=== PATIENT | female | born 1985 | race African-American/Black ===

== ENCOUNTER 2018-08-05 12:41 | Emergency (ER) | payer MEDICARE, MEDICAID ==
[2018-08-05 13:25] VITALS: BP 129/74
[2018-08-05 15:05] LABS: BILIRUBIN,URINE NEGATIVE (NEGATIVE); GLUCOSE, URINE (UA) NEGATIVE (NEGATIVE); KETONES,URINE (UA) TRACE mg/dL (NEGATIVE); LEUKOCYTE ESTERASE, URINE NEGATIVE (NEGATIVE); NITRITE,URINE NEGATIVE (NEGATIVE); OCCULT BLOOD,URINE NEGATIVE (NEGATIVE); PROTEIN,URINE TRACE mg/dL (NEGATIVE); UROBILINOGEN,URINE 0.2 (NORMAL) E.U./dL (NORMAL)
[2018-08-05 15:07] LABS: CLARITY,URINE CLOUDY (CLEAR); HCG UR QUAL NEGATIVE
[2018-08-05] MEDS ORDERED: IBUPROFEN 800 MG TABLET PO STA (15:16)
--- NOTE | 2018-08-05 15:19 | ED Physician Documentation ---
PD HPI URI - Stated complaint Stated Complaint: FEVER - Chief complaint Chief Complaint: Fever - History obtained from History obtained from: Patient - History of Present Illness Timing - onset: How many weeks ago (1) Timing duration: Weeks (1) Timing details: Gradual onset Pain level max: 5 Pain level now: 4 Associated symptoms: Fever, Chills, Sweats, Nasal congestion, Rhinorrhea, Sinus pain, Dry cough. No: Sore throat, Chest pain, Dyspnea Contributing factors: Travel (to [place] for 3 weeks). 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 : None HEENT: None Psych: Depression, Anxiety Musculoskeletal: None Derm: None - Past Surgical History Past Surgical History: Yes HEENT: Tonsil/Adenoidectomy - Present Medications Home Medications: Ambulatory Orders Medication Instructions Recorded Confirmed Benzonatate [Tessalon Perle] 100 - 200 mg PO TID PRN #30 capsule 08/05/18 - Allergies Allergies/Adverse Reactions: Allergies Allergy/AdvReac Type Severity Reaction Status Date / Time acetaminophen [From Vicodin] Allergy Intermediate Itching Verified 08/05/18 13:14 hydrocodone [From Vicodin] Allergy Intermediate Itching Verified 08/05/18 13:14 Penicillins Allergy Intermediate Itching Verified 08/05/18 13:14 - Social History Does the pt smoke?: No Smoking Status: Never smoker Does the pt drink ETOH?: No Does the pt have substance abuse?: No - Immunizations Immunizations are current?: Yes - POLST Patient has POLST: No PD ED PE NORMAL - Vitals Vital signs reviewed: Yes - General General: Alert and oriented X 3, No acute distress, Well developed/nourished - HEENT HEENT: Ears normal, Moist mucous membranes, Pharynx benign - Neck Neck: Supple, no meningeal sign - Cardiac Cardiac: RRR, Strong equal pulses - Respiratory Respiratory: No respiratory distress, Other (mild rhonchi RLL) - Abdomen Abdomen: Soft, Non tender, Non distended - Derm Derm: Warm and dry, No rash - Extremities Extremities: No edema, No calf tenderness / cord - Neuro Neuro: Alert and oriented X 3 Results - Vitals Vitals: Vital Signs - 24 hr 08/05/18 13:14 Temperature 38.4 C H Heart Rate 85 Respiratory 16 Rate Blood Pressure 129/74 O2 Saturation 96 Oxygen O2 Source Room air - Labs Labs: Laboratory Tests 08/05/18 08/05/18 14:46 14:46 Urine Color YELLOW Urine Clarity CLOUDY Urine pH 6.0 Ur Specific [place] >=1.030 H Urine Protein TRACE Urine Glucose (UA) NEGATIVE Urine Ketones TRACE Urine Occult Blood NEGATIVE Urine Nitrite NEGATIVE Urine Bilirubin NEGATIVE Urine Urobilinogen 0.2 (NORMAL) Ur Leukocyte Esterase NEGATIVE Urine RBC None Seen Urine WBC 0-3 Ur Squamous Epith Cells NONE SEEN Amorphous Sediment Marked Urine Bacteria None Seen Ur Microscopic Review INDICATED Urine Culture Comments NOT INDICATED Urine HCG, Qual NEGATIVE Influenza A (Rapid) Negative Influenza B (Rapid) Negative - Rads (name of study) cxr Radiology: Prelim report reviewed, EMP read contemporaneously, See rad report (No acute disease) PD MEDICAL DECISION MAKING - ED course Complexity details: reviewed results, re-evaluated patient, considered differential, d/w patient ED course: 33-year-old female presents to the emergency department with what appears to be a viral syndrome. She is well-appearing, nontoxic. Afebrile. We will continue supportive care and follow-up with her doctor. Patient counseled regarding signs and symptoms for which I believe and urgent re-evaluation would be necessary. Patient with good understanding of and agreement to plan and is comfortable going home at this time This document was made in part using voice recognition software. While efforts are made to proofread this document, sound alike and grammatical errors may occur. Departure - Departure Disposition: 01 Home, Self Care Clinical Impression: Viral syndrome Condition: Good Instructions: ED Viral Syndrome Follow-Up: your,doctor in 1 week [Other] Prescriptions: Benzonatate [Tessalon Perle] 100 - 200 mg PO TID PRN #30 capsule PRN Reason: Cough Comments: Go home and rest. Return if you worsen. Drink plenty of fluids. You can use Motrin or Tylenol as needed for pain. Discharge Date/Time: 08/05/18 16:30
[2018-08-05 15:41] LABS: AMORPHOUS SEDIMENT,UR Marked /LPF; BACTERIA,URINE None Seen /HPF (None Seen); RBC,URINE None Seen /HPF (0-5); SQUAMOUS EPITHELIAL CELL,UR NONE SEEN (<= Few)
--- NOTE | 2018-08-05 15:58 | XRAY Report ---
Reason: fever, cough Procedure Date: 08/05/2018 Accession Number: [id number] / [id number] Procedure: XR - Chest 2 View X-Ray CPT Code: 10990 FULL RESULT: EXAM: CHEST RADIOGRAPHY EXAM DATE: 08/05/2018 03:31 PM. CLINICAL HISTORY: Fever, cough. COMPARISON: None. TECHNIQUE: 2 views. FINDINGS: Lungs/Pleura: No focal opacities evident. No pleural effusion. No pneumothorax. Normal volumes. Mediastinum: Heart and mediastinal contours are unremarkable. Other: None. IMPRESSION: No acute cardiopulmonary abnormality. RADIA
== END 2018-08-05 16:30 | disposition home or self-care (01) ==
LOC: ED 12:41
DX: B34.9 Viral infection, unspecified (principal)
CPT/HCPCS: 71046; 81001; 81025; 87275; 87276; 99283; A9270; 81003; 87086

== ENCOUNTER 2018-10-14 20:01 | Emergency (ER) | payer MEDICARE, MEDICAID ==
[2018-10-14] MEDS ORDERED: IBUPROFEN 800 MG TABLET PO STA (20:20)
--- NOTE | 2018-10-14 20:22 | ED Physician Documentation ---
PD HPI ABD PAIN - Stated complaint Stated Complaint: L SIDE PAIN - Chief complaint Chief Complaint: Abd Pain - History obtained from History obtained from: Patient - History of Present Illness Timing - onset: Other (Her last menses finished up about a week ago. Subsequent to that she developed about 2 days later and now going on for 5 days left flank pain radiating to the left lower quadrant and down into the buttock. Its associated with decreased appetite but no nausea or vomiting. No change in her bowel movements. She is had vaginal bleeding as well. She had renal colic before but she says this is milder and different.) Review of Systems Ten Systems: 10 systems reviewed and negative Constitutional: denies: Fever, Chills Cardiac: denies: Chest pain / pressure, Palpitations Respiratory: denies: Dyspnea, Cough GI: reports: Abdominal Pain. denies: Nausea, Vomiting, Constipation, Hematemesis, Bloody / black stool : reports: Vaginal bleeding. 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 : None HEENT: None Psych: Depression, Anxiety Musculoskeletal: None Derm: None - Past Surgical History Past Surgical History: Yes HEENT: Tonsil/Adenoidectomy - Present Medications Home Medications: Ambulatory Orders Medication Instructions Recorded Confirmed Benzonatate [Tessalon Perle] 100 - 200 mg PO TID PRN #30 capsule 08/05/18 - Allergies Allergies/Adverse Reactions: Allergies Allergy/AdvReac Type Severity Reaction Status Date / Time acetaminophen [From Vicodin] Allergy Intermediate Itching Verified 10/14/18 20:08 hydrocodone [From Vicodin] Allergy Intermediate Itching Verified 10/14/18 20:08 Penicillins Allergy Intermediate Itching Verified 10/14/18 20:08 - Social History Does the pt smoke?: No Smoking Status: Never smoker Does the pt drink ETOH?: No Does the pt have substance abuse?: No - Immunizations Immunizations are current?: Yes - POLST Patient has POLST: No PD ED PE NORMAL - Vitals Vital signs reviewed: Yes - General General: Alert and oriented X 3, No acute distress - Cardiac Cardiac: RRR, No murmur - Respiratory Respiratory: No respiratory distress, Clear bilaterally - Abdomen Abdomen: Normal bowel sounds, Soft, Non tender - Back Back: No CVA TTP, No spinal TTP - Neuro Neuro: Alert and oriented X 3, Normal speech Results - Vitals Vitals: Vital Signs - 24 hr 10/14/18 10/14/18 10/14/18 20:03 20:12 21:12 Temperature 37.1 C Heart Rate 66 75 Respiratory 18 18 16 Rate Blood Pressure 158/115 H 122/96 H O2 Saturation 98 99 Oxygen O2 Source Room air - Labs Labs: Laboratory Tests 10/14/18 10/14/18 10/14/18 20:24 20:30 20:30 WBC 8.9 RBC 4.58 Hgb 13.6 Hct 38.7 MCV 84.5 MCH 29.7 MCHC 35.1 RDW 13.5 Plt Count 518 H MPV 7.0 L Neut # (Auto) 4.8 Lymph # (Auto) 3.3 [place] # (Auto) 0.6 Eos # (Auto) 0.1 Baso # (Auto) 0.1 Absolute Nucleated RBC 0.00 Nucleated RBC % 0.0 Sodium 140 Potassium 3.8 Chloride 108 Carbon Dioxide 23 Anion Gap 9.0 BUN 17 Creatinine 0.7 Estimated GFR (MDRD) 116 Glucose 107 H Calcium 10.0 Total Bilirubin 0.5 AST 20 ALT 27 Alkaline Phosphatase 64 Total Protein 8.7 H Albumin 4.9 Globulin 3.8 Albumin/Globulin Ratio 1.3 Lipase 27 Urine Color YELLOW Urine Clarity HAZY Urine pH 6.0 Ur Specific [place] 1.025 Urine Protein NEGATIVE Urine Glucose (UA) NEGATIVE Urine Ketones 15 H Urine Occult Blood MODERATE H Urine Nitrite NEGATIVE Urine Bilirubin NEGATIVE Urine Urobilinogen 0.2 (NORMAL) Ur Leukocyte Esterase NEGATIVE Urine RBC 6-10 H Urine WBC 0-3 Ur Squamous Epith Cells FEW Squamous Urine Bacteria Rare Ur Microscopic Review INDICATED Urine Culture Comments NOT INDICATED Urine HCG, Qual NEGATIVE - Rads (name of study) CT A/P Radiology: EMP read contemporaneously (Official read as thickening of the endometrial stripe, I also note a left ovarian cyst which was not commented on by the radiologist.) PD MEDICAL DECISION MAKING - ED course ED course: 33-year-old woman with left pelvic and flank pain, she has had renal colic befor e and feels like this is not reminiscent and it is associated with vaginal bleeding. She is not and her labs are reassuring. CT as shown with thickening of the endometrial stripe and to my eye a left ovarian cyst which the radiologist did not comment on. She did not need anything other than ibuprofen for pain. Discussed the need for a follow-up ultrasound. Departure - Departure Disposition: 01 Home, Self Care Clinical Impression: Ovarian cyst Qualifiers: Laterality: left Qualified Code(s): N83.202 - Unspecified ovarian cyst, left side Condition: Good Record reviewed to determine appropriate education?: Yes Instructions: Abdominal Pain Follow-Up: [facility] [Provider Group] Comments: You can take ibuprofen as needed for the pain. As discussed you will need a follow-up ultrasound, follow-up with the gynecology office for this, you can call on Wednesday to make an appointment for a few date weeks down the road. Return for new worsening symptoms.
[2018-10-14 20:34] LABS: BILIRUBIN,URINE NEGATIVE (NEGATIVE); GLUCOSE, URINE (UA) NEGATIVE (NEGATIVE); KETONES,URINE (UA) 15 mg/dL (NEGATIVE); LEUKOCYTE ESTERASE, URINE NEGATIVE (NEGATIVE); NITRITE,URINE NEGATIVE (NEGATIVE); OCCULT BLOOD,URINE MODERATE (NEGATIVE); PROTEIN,URINE NEGATIVE (NEGATIVE); UROBILINOGEN,URINE 0.2 (NORMAL) E.U./dL (NORMAL)
[2018-10-14 20:38] LABS: BASOPHILS # (AUTO) 0.1 10^3/uL (0.0-0.1); BASOPHILS % (AUTO) 0.7 %; EOSINOPHILS # (AUTO) 0.1 10^3/uL (0.0-0.7); EOSINOPHILS % (AUTO) 1.4 %; HGB - HEMOGLOBIN 13.6 g/dL (12.0-16.0); LYMPHOCYTES # (AUTO) 3.3 10^3/uL (1.5-3.5); LYMPHOCYTES % (AUTO) 37.6 %; MEAN CORPUSCULAR HEMOGLOBIN 29.7 pg (27.0-31.0); MEAN CORPUSCULAR HGB CONC 35.1 g/dL (32.0-36.0); MEAN CORPUSCULAR VOLUME 84.5 fL (81.0-99.0); MONOCYTES # (AUTO) 0.6 10^3/uL (0.0-1.0); MONOCYTES % (AUTO) 6.9 %; NEUTROPHILS # (AUTO) 4.8 10^3/uL (1.5-6.6); NEUTROPHILS % (AUTO) 53.4 %; PLT - PLATELET COUNT 518 10^3/uL (130-450); RED BLOOD COUNT 4.58 10^6/uL (4.20-5.40); RED CELL DISTRIBUTION WIDTH 13.5 % (12.0-15.0); WHITE BLOOD COUNT 8.9 x10^3/uL (4.8-10.8)
[2018-10-14 20:40] LABS: CLARITY,URINE HAZY (CLEAR); HCG UR QUAL NEGATIVE
[2018-10-14 20:51] LABS: ALBUMIN 4.9 g/dL (3.2-5.5); ALBUMIN/GLOBULIN RATIO 1.3 (1.0-2.2); BILIRUBIN,TOTAL 0.5 mg/dL (0.2-1.0); CREATININE 0.7 mg/dL (0.4-1.0); TOTAL PROTEIN 8.7 g/dL (6.7-8.2)
[2018-10-14 20:53] LABS: BACTERIA,URINE Rare /HPF (None Seen); SQUAMOUS EPITHELIAL CELL,UR FEW Squamous (<= Few)
[2018-10-14] MEDS ORDERED: IOVERSOL 320 100 ML VIAL IVP ONE ×2 (21:10→21:46)
--- NOTE | 2018-10-14 22:16 | CT Report ---
Reason: L flank pain Procedure Date: 10/14/2018 Accession Number: [id number] / [id number] Procedure: CT - Abdomen/Pelvis W CPT Code: FULL RESULT: EXAM: CT ABDOMEN AND PELVIS EXAM DATE: 10/14/2018 09:43 PM. CLINICAL HISTORY: Left lower flank pain for 4 days. COMPARISONS: None. TECHNIQUE: Routine helical CT imaging was performed through the abdomen and pelvis. IV contrast: 100 mL [id number]. Enteric contrast: No. Reconstructions: Coronal and sagittal. In accordance with CT protocol optimization, one or more of the following dose reduction techniques were utilized for this exam: automated exposure control, adjustment of mA and/or KV based on patient size, or use of iterative reconstructive technique. FINDINGS: ABDOMEN: Liver: No significant abnormality. Stomach/Distal Esophagus: No significant abnormality. Gallbladder: No significant abnormality. Bile Ducts: No significant abnormality. Pancreas: No significant abnormality. Spleen: No significant abnormality. Kidneys: No suspicious solid appearing lesion. No hydronephrosis. Adrenals: No significant abnormality. Bowel: No obstruction. Average fecal residual. Appendix: Normal. Lymph Nodes: No pathologically enlarged nodes. Vasculature: Normal caliber aorta. Fluid: No significant free fluid. Abdominal Wall: No significant abnormality. Other: No significant abnormality. PELVIS: Uterus and Ovaries: Nonspecific heterogenous appearance of the endometrial stripe complex. Normal appearance of the ovaries. Cervical nabothian cyst. Possible adenomyosis and/or leiomyoma at the uterine fundus. Bladder: No significant abnormality. Lymph Nodes: No pathologically enlarged nodes. Fluid: No significant free fluid. Other: None. BONES: No suspicious bony lesions. LOWER CHEST: No significant consolidation or effusion. IMPRESSION: 1. No acute abdominal or pelvic abnormality. 2. Nonspecific heterogeneous appearance of the endometrial stripe complex. This could be further assessed with a nonemergent outpatient pelvic ultrasound. RADIA
[2018-10-14 22:27] VITALS: BP 102/73
== END 2018-10-14 22:27 | disposition home or self-care (01) ==
LOC: ED 20:01
DX: N83.202 Unspecified ovarian cyst, left side (principal); N93.9 Abnormal uterine and vaginal bleeding, unspecified
CPT/HCPCS: 36415; 74177; 80053; 81001; 81025; 83690; 85025; 99283; A9270; Q9967; 81003; 87086

== ENCOUNTER 2018-10-17 19:09 | Emergency (ER) | payer MEDICARE, MEDICAID ==
--- NOTE | 2018-10-17 19:29 | ED Physician Documentation ---
PD HPI BACK PAIN - Stated complaint Stated Complaint: Female - Chief complaint Chief Complaint: Back Pain - History obtained from History obtained from: Patient - History of Present Illness Timing - onset: Other (Seen a few days ago for L pelvic pain, dx L ovarian cyst. 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 : None HEENT: None Psych: Depression, Anxiety Musculoskeletal: None Derm: None - Past Surgical History Past Surgical History: Yes HEENT: Tonsil/Adenoidectomy - Present Medications Home Medications: Ambulatory Orders Medication Instructions Recorded Confirmed Benzonatate [Tessalon Perle] 100 - 200 mg PO TID PRN #30 capsule 08/05/18 - Allergies Allergies/Adverse Reactions: Allergies Allergy/AdvReac Type Severity Reaction Status Date / Time acetaminophen [From Vicodin] Allergy Intermediate Itching Verified 10/17/18 19:15 hydrocodone [From Vicodin] Allergy Intermediate Itching Verified 10/17/18 19:15 Penicillins Allergy Intermediate Itching Verified 10/17/18 19:15 - Social History Does the pt smoke?: No Smoking Status: Never smoker Does the pt drink ETOH?: No Does the pt have substance abuse?: No - Immunizations Immunizations are current?: Yes - POLST Patient has POLST: No PD ED PE NORMAL - Vitals Vital signs reviewed: Yes - General General: Alert and oriented X 3, No acute distress - Cardiac Cardiac: RRR, No murmur - Respiratory Respiratory: No respiratory distress, Clear bilaterally - Abdomen Abdomen: Normal bowel sounds, Soft, Other (Mild TTP L pelvis and L CVAT) - 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), Other (No blood, No CMT or adnexal TTP or mass) - Back Back: No CVA TTP, No spinal TTP - Derm Derm: Normal color, Warm and dry - Extremities Extremities: No edema, No calf tenderness / cord - Neuro Neuro: Alert and oriented X 3, Normal speech Results - Vitals Vitals: Vital Signs - 24 hr 10/17/18 10/17/18 19:11 22:22 Temperature 36.9 C Heart Rate 72 82 Respiratory 14 16 Rate Blood Pressure 142/93 H 150/84 H O2 Saturation 100 97 Oxygen O2 Source Room air - Labs Labs: Laboratory Tests 10/17/18 10/17/18 10/17/18 19:15 19:15 19:47 WBC 10.7 RBC 4.35 Hgb 13.2 Hct 37.0 MCV 85.1 MCH 30.3 MCHC 35.6 RDW 13.8 Plt Count 495 H MPV 7.3 L Neut # (Auto) 7.0 H Lymph # (Auto) 2.9 [place] # (Auto) 0.7 Eos # (Auto) 0.1 Baso # (Auto) 0.1 Absolute Nucleated RBC 0.00 Nucleated RBC % 0.0 Sodium Potassium Chloride Carbon Dioxide Anion Gap BUN Creatinine Estimated GFR (MDRD) Glucose Calcium Total Bilirubin AST ALT Alkaline Phosphatase Total Protein Albumin Globulin Albumin/Globulin Ratio Lipase Urine Color YELLOW Cancelled Urine Clarity HAZY Cancelled Urine pH 5.5 Cancelled Ur Specific [place] >=1.030 H >=1.030 H Urine Protein NEGATIVE Cancelled Urine Glucose (UA) NEGATIVE Cancelled Urine Ketones NEGATIVE Cancelled Urine Occult Blood SMALL H Cancelled Urine Nitrite NEGATIVE Cancelled Urine Bilirubin NEGATIVE Cancelled Urine Ictotest Cancelled Urine Urobilinogen 0.2 (NORMAL) Cancelled Ur Leukocyte Esterase NEGATIVE Cancelled Urine RBC 0-5 Urine WBC 0-3 Ur Squamous Epith Cells FEW Squamous Urine Bacteria None Seen Ur Microscopic Review Cancelled Urine Culture Comments NOT INDICATED Cancelled Urine HCG, Qual NEGATIVE 10/17/18 19:47 WBC RBC Hgb Hct MCV MCH MCHC RDW Plt Count MPV Neut # (Auto) Lymph # (Auto) [place] # (Auto) Eos # (Auto) Baso # (Auto) Absolute Nucleated RBC Nucleated RBC % Sodium 137 Potassium 3.8 Chloride 105 Carbon Dioxide 22 Anion Gap 10.0 BUN 12 Creatinine 0.5 Estimated GFR (MDRD) 171 Glucose 118 H Calcium 10.1 Total Bilirubin 0.3 AST 25 ALT 28 Alkaline Phosphatase 67 Total Protein 7.8 Albumin 4.5 Globulin 3.3 Albumin/Globulin Ratio 1.4 Lipase 37 Urine Color Urine Clarity Urine pH Ur Specific [place] Urine Protein Urine Glucose (UA) Urine Ketones Urine Occult Blood Urine Nitrite Urine Bilirubin Urine Ictotest Urine Urobilinogen Ur Leukocyte Esterase Urine RBC Urine WBC Ur Squamous Epith Cells Urine Bacteria Ur Microscopic Review Urine Culture Comments Urine HCG, Qual - Rads (name of study) Pelvic sono Radiology: Final report received (Thickened endometrium, fundal fibroid, normal ovaries, no free fluid) PD MEDICAL DECISION MAKING - ED course ED course: 33-year-old woman presents with left-sided pelvic pain radiating to the back and leg. Her examination is inconsistent with PID. The other day she had a CAT scan I thought she had what was on ovarian cysts but I think this was probably the fibroid. There is no evidence of serious or emergent etiology and follow-up with gynecology was recommended. She declined pain medication. Departure - Departure Disposition: 01 Home, Self Care Clinical Impression: Pelvic pain, Fibroid uterus Condition: Good Record reviewed to determine appropriate education?: Yes Instructions: ED Pelvic Pain [facility] Follow-Up: [facility] [Provider Group] Comments: Call your doctor to arrange a follow-up appointment, make the next available appointment. In the interim, return anytime if worse or if new symptoms develop. Discharge Date/Time: 10/17/18 23:11
[2018-10-17] MEDS ORDERED: KETOROLAC 30 MG/ML VIAL IVP STA (19:39)
[2018-10-17 19:45] LABS: BILIRUBIN,URINE NEGATIVE (NEGATIVE); GLUCOSE, URINE (UA) NEGATIVE (NEGATIVE); KETONES,URINE (UA) NEGATIVE (NEGATIVE); LEUKOCYTE ESTERASE, URINE NEGATIVE (NEGATIVE); NITRITE,URINE NEGATIVE (NEGATIVE); OCCULT BLOOD,URINE SMALL (NEGATIVE); PH,URINE 5.5 PH (5.0-7.5); PROTEIN,URINE NEGATIVE (NEGATIVE); UROBILINOGEN,URINE 0.2 (NORMAL) E.U./dL (NORMAL)
[2018-10-17 19:52] LABS: CLARITY,URINE HAZY (CLEAR)
[2018-10-17 19:54] LABS: BASOPHILS # (AUTO) 0.1 10^3/uL (0.0-0.1); BASOPHILS % (AUTO) 0.7 %; EOSINOPHILS # (AUTO) 0.1 10^3/uL (0.0-0.7); EOSINOPHILS % (AUTO) 1.3 %; HGB - HEMOGLOBIN 13.2 g/dL (12.0-16.0); LYMPHOCYTES # (AUTO) 2.9 10^3/uL (1.5-3.5); LYMPHOCYTES % (AUTO) 27.1 %; MEAN CORPUSCULAR HEMOGLOBIN 30.3 pg (27.0-31.0); MEAN CORPUSCULAR HGB CONC 35.6 g/dL (32.0-36.0); MEAN CORPUSCULAR VOLUME 85.1 fL (81.0-99.0); MEAN PLATELET VOLUME 7.3 fL (7.9-10.8); MONOCYTES # (AUTO) 0.7 10^3/uL (0.0-1.0); MONOCYTES % (AUTO) 6.1 %; NEUTROPHILS % (AUTO) 64.8 %; PLT - PLATELET COUNT 495 10^3/uL (130-450); RED BLOOD COUNT 4.35 10^6/uL (4.20-5.40); RED CELL DISTRIBUTION WIDTH 13.8 % (12.0-15.0); WHITE BLOOD COUNT 10.7 x10^3/uL (4.8-10.8)
[2018-10-17 19:58] LABS: BACTERIA,URINE None Seen /HPF (None Seen); RBC,URINE 0-5 /HPF (0-5); SQUAMOUS EPITHELIAL CELL,UR FEW Squamous (<= Few)
[2018-10-17] MEDS ORDERED: ACETAMINOPHEN 325 MG TABLET PO STA (19:58)
[2018-10-17 20:00] LABS: HCG UR QUAL NEGATIVE
[2018-10-17 20:08] LABS: ALBUMIN 4.5 g/dL (3.2-5.5); ALBUMIN/GLOBULIN RATIO 1.4 (1.0-2.2); BILIRUBIN,TOTAL 0.3 mg/dL (0.2-1.0); CALCIUM 10.1 mg/dL (8.5-10.3); CREATININE 0.5 mg/dL (0.4-1.0); TOTAL PROTEIN 7.8 g/dL (6.7-8.2)
--- NOTE | 2018-10-17 21:56 | Ultrasound Report ---
Reason: pelvic pain, L Procedure Date: 10/17/2018 Accession Number: [id number] / [id number] Procedure: US - Pelvic w/Transvag+Doppler Comp CPT Code: FULL RESULT: EXAM: PELVIC ULTRASOUND EXAM DATE: 10/17/2018 09:22 PM. CLINICAL HISTORY: Pelvic pain, L. COMPARISON: None. TECHNIQUE: Realtime transabdominal pelvic scan performed to identify the uterus and adnexa and as an overview of other pelvic structures, followed by transvaginal scan to provide greater detail of the uterus and adnexa, with static image documentation. FINDINGS: Uterus: 8.8 x 4.2 x 4.7 cm, volume 91 cc. Anteverted position. Normal overall size and echotexture. Masses: There is a fundal intramural fibroid measuring 2.6 x 2 x 2.8 cm Endometrium: 15.7 mm. Thickened endometrium with increased vascularity. Endometrial polyp is not excluded. Cervix: Nabothian cysts, largest is 1.4 x 1.1 x 1.5 cm. Right Ovary: 3.8 x 2.1 x 2.8 cm, volume 11.7 cc. Normal echotexture and blood flow. Left Ovary: 3.0 x 1.8 x 1.8 cm, volume 5.4 cc. Normal echotexture and blood flow. Free Fluid: None. Other: None. IMPRESSION: Thickened endometrium with increased vascularity. Endometrial polyp is not excluded. An intramural fundal fibroid, measuring 2.6 x 2 x 2.8 cm. Unremarkable ovaries. No adnexal mass. No free fluid. RADIA
[2018-10-17 22:23] VITALS: BP 150/84
== END 2018-10-17 23:11 | disposition home or self-care (01) ==
LOC: ED 19:09
DX: D25.1 Intramural leiomyoma of uterus (principal); N88.8 Other specified noninflammatory disorders of cervix uteri
CPT/HCPCS: 36415; 76830; 76856; 80053; 81001; 81025; 83690; 85025; 87491; 87591; 93975; 99283; A9270; 81003; 87086

== ENCOUNTER 2019-03-28 00:12 | Emergency (ER) | payer MEDICAID, MEDICARE ==
[2019-03-28 00:50] LABS: BILIRUBIN,URINE NEGATIVE (NEGATIVE); GLUCOSE, URINE (UA) NEGATIVE (NEGATIVE); KETONES,URINE (UA) TRACE mg/dL (NEGATIVE); LEUKOCYTE ESTERASE, URINE NEGATIVE (NEGATIVE); NITRITE,URINE NEGATIVE (NEGATIVE); OCCULT BLOOD,URINE NEGATIVE (NEGATIVE); PROTEIN,URINE NEGATIVE (NEGATIVE); UROBILINOGEN,URINE 0.2 (NORMAL) E.U./dL (NORMAL)
[2019-03-28 00:51] LABS: CLARITY,URINE CLEAR (CLEAR)
[2019-03-28 00:52] LABS: HCG UR QUAL NEGATIVE
--- NOTE | 2019-03-28 02:54 | ED Physician Documentation ---
PD HPI ABD PAIN - Stated complaint Stated Complaint: L SIDE LOWER ABD PX - Chief complaint Chief Complaint: Abd Pain - History obtained from History obtained from: Patient - History of Present Illness Timing - onset: How many days ago (5) Timing - duration: Days Timing - details: Gradual onset, Waxing and waning Pain level now: 5 Quality: Pain Location: LLQ, Other (left pelvis) Radiation: Lower back Improved by: Other (no ameliorating factors) Worsened by: Other (no exacerbating factors) Associated symptoms: Nausea. No: Fever, Vomiting, Diarrhea, Constipation Recently seen: Not recently seen Review of Systems Constitutional: denies: Fever, Chills, Sweats Cardiac: reports: Reviewed and negative Respiratory: reports: Reviewed and negative GI: reports: Abdominal Pain, Nausea. denies: Vomiting, Constipation, Diarrhea : denies: Dysuria, Frequency, Hematuria, Vaginal bleeding, Now EGA PD PAST MEDICAL HISTORY - Past Medical History Past Medical History: Yes Cardiovascular: None Respiratory: None Neuro: None Endocrine/Autoimmune: None GI: None DIVISION ORDER ANALYST: Ovarian cysts, Fibroids : None HEENT: None Psych: Depression, Anxiety Musculoskeletal: None Derm: Eczema - Past Surgical History Past Surgical History: Yes /DIVISION ORDER ANALYST: Breast reduction HEENT: Tonsil/Adenoidectomy - Present Medications Home Medications: Ambulatory Orders Medication Instructions Recorded Confirmed diazePAM [Valium] 2.5 mg PO BID 03/28/19 03/28/19 lamoTRIgine [LaMICtal] 100 mg PO DAILY 03/28/19 03/28/19 - Allergies Allergies/Adverse Reactions: Allergies Allergy/AdvReac Type Severity Reaction Status Date / Time acetaminophen [From Vicodin] Allergy Intermediate Itching Verified 03/28/19 00:20 hydrocodone [From Vicodin] Allergy Intermediate Itching Verified 03/28/19 00:20 Penicillins Allergy Intermediate Itching Verified 03/28/19 00:20 - Social History Does the pt smoke?: No Smoking Status: Former smoker Does the pt drink ETOH?: No Does the pt have substance abuse?: No Substance Use and Type: Marijuana - Immunizations Immunizations are current?: Yes - POLST Patient has POLST: No PD ED PE NORMAL - Vitals Vital signs reviewed: Yes - General General: Alert and oriented X 3, No acute distress, Well developed/nourished - Cardiac Cardiac: RRR, No murmur - Respiratory Respiratory: No respiratory distress, Clear bilaterally - Abdomen Abdomen: Soft, Non tender, Non distended - Back Back: No CVA TTP - Derm Derm: Normal color, No rash Results - Vitals Vitals: Oxygen O2 Source Room air - Labs Labs: Laboratory Tests 03/28/19 03/28/19 03/28/19 00:40 03:31 03:31 WBC 9.2 RBC 4.61 Hgb 13.1 Hct 40.1 MCV 87.0 MCH 28.4 MCHC 32.7 RDW 13.7 Plt Count 460 H MPV 9.1 Neut # (Auto) 4.2 Lymph # (Auto) 4.0 H [place] # (Auto) 0.8 Eos # (Auto) 0.2 Baso # (Auto) 0.0 Absolute Nucleated RBC 0.00 Nucleated RBC % 0.0 Sodium 139 Potassium 3.9 Chloride 104 Carbon Dioxide 25 Anion Gap 10.0 BUN 16 Creatinine 0.7 Estimated GFR (MDRD) 115 Glucose 102 H Calcium 9.9 Urine Color YELLOW Urine Clarity CLEAR Urine pH 6.0 Ur Specific [place] 1.025 Urine Protein NEGATIVE Urine Glucose (UA) NEGATIVE Urine Ketones TRACE Urine Occult Blood NEGATIVE Urine Nitrite NEGATIVE Urine Bilirubin NEGATIVE Urine Urobilinogen 0.2 (NORMAL) Ur Leukocyte Esterase NEGATIVE Ur Microscopic Review NOT INDICATED Urine Culture Comments NOT INDICATED Urine HCG, Qual NEGATIVE - Rads (name of study) pelvic/TV US Radiology: Prelim report reviewed, See rad report PD MEDICAL DECISION MAKING - ED course Complexity details: reviewed old records, reviewed results, re-evaluated patient, considered differential, d/w patient Departure - Departure Disposition: 01 Home, Self Care Clinical Impression: Pelvic pain Condition: Good Instructions: ED Pelvic Pain [facility] Follow-Up: Raheem Whittington MD [Provider Admit Priv/Credential] - Discharge Date/Time: 03/28/19 06:16
[2019-03-28 03:35] LABS: BASOPHILS % (AUTO) 0.4 %; EOSINOPHILS # (AUTO) 0.2 10^3/uL (0.0-0.7); EOSINOPHILS % (AUTO) 1.7 %; HGB - HEMOGLOBIN 13.1 g/dL (12.0-16.0); LYMPHOCYTES % (AUTO) 43.4 %; MEAN CORPUSCULAR HEMOGLOBIN 28.4 pg (27.0-31.0); MEAN CORPUSCULAR HGB CONC 32.7 g/dL (32.0-36.0); MEAN PLATELET VOLUME 9.1 fL (7.9-10.8); MONOCYTES # (AUTO) 0.8 10^3/uL (0.0-1.0); MONOCYTES % (AUTO) 8.5 %; NEUTROPHILS # (AUTO) 4.2 10^3/uL (1.5-6.6); NEUTROPHILS % (AUTO) 45.5 %; PLT - PLATELET COUNT 460 10^3/uL (130-450); RED BLOOD COUNT 4.61 10^6/uL (4.20-5.40); RED CELL DISTRIBUTION WIDTH 13.7 % (12.0-15.0); WHITE BLOOD COUNT 9.2 x10^3/uL (4.8-10.8)
[2019-03-28 03:45] LABS: CALCIUM 9.9 mg/dL (8.5-10.3); CREATININE 0.7 mg/dL (0.4-1.0)
--- NOTE | 2019-03-28 05:12 | Ultrasound Report ---
Reason: pelvic pain, R Procedure Date: 03/28/2019 Accession Number: [id number] / [id number] Procedure: US - Pelvic w/Transvag+Doppler Comp CPT Code: FULL RESULT: EXAM: PELVIC ULTRASOUND WITH DOPPLERS CLINICAL HISTORY: Pelvic pain, R. COMPARISON: PEL NON OB W/TV DOP 10/17/2018 8:37 PM TECHNIQUE: Realtime transabdominal imaging performed to identify the uterus and adnexa and as an overview of other pelvic structures, followed by transvaginal imaging for better assessment of the endometrium and adnexa, with static image documentation. Color flow imaging and Doppler spectral analysis was performed to evaluate blood flow to the ovaries given pelvic pain and clinical concern for ovarian torsion. FINDINGS: Uterus: 9.3 x 5.6 x 4.7 cm, volume 128 cc. Anteverted position. Masses: Heterogeneous irregular area at the uterine fundus measuring 4.6 x 1.9 x 4.4 cm endovaginally with cystic components. This may be a degenerating fibroid. Endometrium: 16.8 mm. Thickened and heterogeneous. There is endometrial vascularity. Cannot exclude polyp. Endometrial carcinoma less less likely but not entirely excluded. Cervix: Nabothian cysts. Right Ovary: 4.1 x 4.0 x 2.5 cm, volume 21.4 cc. Cyst measuring 2.8 x 2.8 x 2.6 cm. Arterial and venous blood flow are present. PSV 16.2 cm/sec. RI 0.67. Left Ovary: 3.2 x 1.9 x 1.7 cm, volume 5.4 cc. Normal echotexture. Arterial and venous blood flow are present. PSV 20.7 cm/sec. RI 0.5 to. Free Fluid: None. Other: None. IMPRESSION: 1. Possible degenerating fundal fibroid measuring 4.6 x 1.9 x 4.4 cm. 2. Arterial and venous blood flow are present to the ovaries bilaterally. 3. Enlarged right ovary measuring 21.4 cc with 2.8 cm cyst. 4. Thickened heterogeneous endometrium with vascularity possibly representing polyp. Endometrial carcinoma less likely but also in the differential diagnosis. RADIA
[2019-03-28 06:17] VITALS: BP 139/89
== END 2019-03-28 06:16 | disposition home or self-care (01) ==
LOC: ED 00:12
DX: R10.2 Pelvic and perineal pain (principal); R11.0 Nausea; N83.201 Unspecified ovarian cyst, right side; N88.8 Other specified noninflammatory disorders of cervix uteri; R93.89 Abnormal findings on diagnostic imaging of other specified body structures; Z87.891 Personal history of nicotine dependence
CPT/HCPCS: 36415; 76830; 76856; 80048; 81001; 81003; 81025; 85025; 87086; 93975; 99282; 99283

== ENCOUNTER 2019-07-31 19:08 | Outpatient (CLI) | payer MEDICAID ==
--- NOTE | 2019-08-02 12:50 | Ultrasound Report ---
Reason: MEHORRHAGIA Procedure Date: 07/31/2019 Accession Number: [id number] / [id number] Procedure: US - Pelvic w/Transvaginal CPT Code: Final Report FULL RESULT: EXAM: PELVIC ULTRASOUND EXAM DATE: 07/31/2019 08:12 PM. CLINICAL HISTORY: Menorrhagia. Menometrorrhagia. LMP 07/31/2019. G2, P0. COMPARISON: PEL NON OB W/TV DOP 03/28/2019 3:33 AM PEL NON OB W/TV DOP 10/17/2018 8:37 PM ABDOMEN/PELVIS W/ 10/14/2018 9:25 PM. TECHNIQUE: Realtime transabdominal pelvic scan performed to identify the uterus and adnexa and as an overview of other pelvic structures, followed by transvaginal scan to provide greater detail of the uterus and adnexa, with static image documentation. FINDINGS: Uterus: 9.8 x 4.9 x 5.1 cm, volume 126.9 cc. Anteverted position. Normal overall size and echotexture. Masses: 1. Fundal heterogeneous masslike area 2.5 x 2 x 2.5 cm. Endometrium: 11 mm. Heterogeneous with extensive involvement of the endocervical canal vascularity within the endometrial cavity is noted particularly in the fundus of the uterus within the endometrial cavity. Cervix: Central endocervical canal is prominent and heterogeneous and widened. Nabothian cyst noted. Right Ovary: 4.7 x 4.2 x 2.7 cm, volume 29.8 cc. Within the right ovary is a unilocular 3.1 x 2.5 x 3.2 cm cyst. Adjacent smaller follicles are present. Normal flow seen in the right ovary. Left Ovary: 2.6 x 3.3 x 2 cm, volume 8.8 cc. Normal echotexture and blood flow. Free Fluid: None. Other: None. IMPRESSION: 1. Normal uterine volume. Fundal heterogeneous 2.5 cm mass-like area which may represent a uterine myoma. Focal adenomyosis is a consideration. Findings are overall similar appearance. 2. Thickened heterogeneous endometrium measuring 11 mm with complex vascular material present extending into the endocervical canal. Vascularity most probably evident within the endometrial cavity within the fundus of the uterus. 3. Normal ovaries with unilocular right ovarian 3.2 cm follicular cyst. RADIA
== END 2019-07-31 19:09 | disposition home or self-care (01) ==
LOC: DI 19:08
PROVIDERS: ATTEND Obstetrics & Gynecology
DX: Z01.812 Encounter for preprocedural laboratory examination (principal); N84.0 Polyp of corpus uteri; N93.9 Abnormal uterine and vaginal bleeding, unspecified; R93.89 Abnormal findings on diagnostic imaging of other specified body structures; N83.01 Follicular cyst of right ovary; N92.4 Excessive bleeding in the premenopausal period
CPT/HCPCS: 36415; 76830; 76856; 81025; 85025

== ENCOUNTER 2019-07-31 20:04 | Outpatient (CLI) | payer MEDICAID ==
[2019-07-31 20:32] LABS: BASOPHILS % (AUTO) 0.4 %; EOSINOPHILS # (AUTO) 0.2 10^3/uL (0.0-0.7); EOSINOPHILS % (AUTO) 1.4 %; HGB - HEMOGLOBIN 12.7 g/dL (12.0-16.0); LYMPHOCYTES # (AUTO) 4.4 10^3/uL (1.5-3.5); LYMPHOCYTES % (AUTO) 39.6 %; MEAN CORPUSCULAR HEMOGLOBIN 28.9 pg (27.0-31.0); MEAN CORPUSCULAR HGB CONC 32.6 g/dL (32.0-36.0); MEAN CORPUSCULAR VOLUME 88.4 fL (81.0-99.0); MEAN PLATELET VOLUME 9.1 fL (7.9-10.8); MONOCYTES # (AUTO) 0.9 10^3/uL (0.0-1.0); MONOCYTES % (AUTO) 8.3 %; NEUTROPHILS # (AUTO) 5.5 10^3/uL (1.5-6.6); NEUTROPHILS % (AUTO) 49.8 %; PLT - PLATELET COUNT 522 10^3/uL (130-450); RED CELL DISTRIBUTION WIDTH 13.4 % (12.0-15.0)
[2019-07-31 20:34] LABS: HCG UR QUAL NEGATIVE
== END 2019-07-31 20:05 | disposition home or self-care (01) ==
LOC: LAB 20:04
PROVIDERS: ATTEND Obstetrics & Gynecology
DX: Z01.812 Encounter for preprocedural laboratory examination (principal); N84.0 Polyp of corpus uteri; N93.9 Abnormal uterine and vaginal bleeding, unspecified
CPT/HCPCS: 36415; 81025; 85025

== ENCOUNTER 2019-08-02 14:02 | Day surgery (SDC) | payer MEDICAID ==
[~2019-08-02 14:02] MED LIST: LIDOCAINE 1%-EPI 1:100000 20 ML MDV ONE; LIDOCAINE MPF 2%-EPI 1:200000 20 ML VIAL ONE; SILVER NITRATE APPLICATOR TOP ONE
[2019-08-02] MEDS ORDERED: CELECOXIB 100 MG CAPSULE PO ONE (14:23)
[2019-08-02] MEDS ORDERED: GABAPENTIN 400 MG CAPSULE ONE (14:23)
[2019-08-02] MEDS ORDERED: ACETAMINOPHEN 1,000 MG/100 ML 100 ML IV ONE ×2 (14:23→16:54)
--- NOTE | 2019-08-02 14:30 | ANESTHESIA ---
Pre-Anesthesia VS, & Labs - Diagnosis endometrial polyps, abnormal uterine bleeding - Procedure Myosure, hysteroscopy Vital Signs: Temp Pulse Resp BP Pulse Ox 36.5 C 67 15 134/93 H 97 08/02/19 14:13 08/02/19 14:13 08/02/19 14:13 08/02/19 14:13 08/02/19 14:13 Height 5 ft 2 in Weight (kg) 79.2 kg Body Mass Index 34.7 - Is Patient ?: No Home Medications and Allergies diazePAM [Valium] 2.5 mg PO BID 03/28/19 lamoTRIgine [LaMICtal] 100 mg PO DAILY 03/28/19 Allergies/Adverse Reactions: Allergies Allergy/AdvReac Type Severity Reaction Status Date / Time acetaminophen [From Vicodin] Allergy Intermediate Itching Verified 03/28/19 00:20 hydrocodone [From Vicodin] Allergy Intermediate Itching Verified 03/28/19 00:20 Penicillins Allergy Intermediate Itching Verified 03/28/19 00:20 Anes History & Medical History - Anesthetic History Anesthesia Complications: reports: No previous complications Family history of Anesthesia Complications: Denies Family history of Malignant Hyperthermia: Denies - Medical History Cardiovascular: reports: None Pulmonary: reports: None Gastrointestinal: reports: None Urinary: reports: None Neuro: reports: None Musculoskeletal: reports: None Endocrine/Autoimmune: reports: None Blood Disorders: reports: None Skin: reports: Eczema Smoking Status: Former smoker (quit 4 years agor) Psychosocial: reports: No issues indicated, Anxiety, Cannabis (smoked few days ago.) - Surgical History Eyes Ears Nose Throat (EENT): Tonsil/Adenoidectomy Gynecologic: Breast reduction Exam General: Alert, Oriented x3, No acute distress Dental: WNL Mouth Openin Fingerbreadth Neck Mobility: Normal Mallampati classification: I Thyromental Distance: 4-6 cm Respiratory: Lungs clear, Normal breath sounds, No respiratory distress, No accessory muscle use Cardiovascular: Regular rate, Normal S1, Normal S2, No murmurs Abdomen: Normal bowel sounds, Soft, No tenderness, No hepatospenomegaly, No masses Extremities: No clubbing, No cyanosis, No edema, Normal pulses, No tende rness/swelling Neurological: Normal gait, Normal speech, Strength at 5/5 X4 ext, Normal tone, Sensation intact, Cranial nerves 3-12 NL, Reflexes 2+ Mental/Cognitive Status: Alert/Oriented X3, Normal for patient Cognitive Status: Within normal limits Plan Anesthesia Type: General Consent for Procedure(s) Verified and Reviewed: Yes Code Status: Attempt Resuscitation ASA classification: 1-Healthy patient Is this case an emergency?: No
[2019-08-02 14:35] LABS: HCG UR QUAL NEGATIVE
[2019-08-02] MEDS ORDERED: ONDANSETRON 4 MG/2 ML VIAL IVP ONE (16:54)
[2019-08-02] MEDS ORDERED: LIDOCAINE-MPF 2% 5 ML VIAL IM ONE (16:54)
[2019-08-02] MEDS ORDERED: DEXAMETHASONE 4 MG/ML VIAL IVP ONE (16:54)
[2019-08-02] MEDS ORDERED: fentaNYL 100 MCG/2 ML VIAL IVP ONE (16:54)
[2019-08-02] MEDS ORDERED: MIDAZOLAM 2 MG/2 ML VIAL IVP ONE (16:54)
[2019-08-02] MEDS ORDERED: PROPOFOL 200 MG/20 ML VIAL IVP ONE (16:54)
[2019-08-02] MEDS ORDERED: LACTATED RINGERS 1,000 ML IV ONE (17:58)
--- NOTE | 2019-08-02 18:20 | OPERATIVE REPORT ---
Operative Report - General Planned Procedure: Hysteroscopy D&C and polypectomy Pre-Op Diagnosis: Thickened endometrium and DUB Procedure Performed: Hysteroscopy D&C and polypectomy Post Op Diagnosis: Same - Procedure Note Primary Surgeon: Kassy Nolan MD Anesthesia Technique: General LMA Pathology: uterine contents IV Fluids (mL): 400 Estimated Blood Loss (mL): 10 Urine Output (mL): 10 Indications: Patient is a 34 yo female with menorrhagia and DUB. Pelvic us showed thickened endometrium with possible polyp. She presents for surgical management. Findings: Gaping cervical os with polypoid tissue protruding through external os. This was removed manually. Large polyp rooted in intrauterine cavity and protruding along the endocervical canal as well as multiple other polyps. Bilateral tubal ostia seen on hysteroscopy. Complications: None - Other Other Information/Narrative: Risks benefits and alternatives to the procedure were reviewed. Consent was again confirmed. Patient was taken to the operating room where she underwent general anesthesia. She was positioned in dorsolithotomy position with legs resting in yellowfin stirrups. She was prepped and draped in the usual sterile fashion. Preoperative antibiotics were not indicated. Preoperative checklist was performed. Exam under anesthesia was performed. Speculum was placed in the vagina and the cervix was visualized. Single-tooth tenaculum was placed at the anterior cervical lip. Paracervical block was administered using a total of 20 cc of 1% lidocaine with epinephrine was injected at the 4:00 and 8:00 positions lateral to the portio of the cervix. The polyp protruding from the cervical os was grasp with polyp forceps and extracted. The cervical os was already adequately dilated to accommodate the caliber of the diagnostic hysteroscope. The hysteroscope was inserted and findings were noted as above. The hysteroscopic morcellator was inserted through the operative port. The intrauterine polyps were morcellated under direct visualization. Uterine cavity was smooth at close of the procedure. Hysteroscope was removed. Sharp curettage D&C was performed with sharp curettage. All instruments were removed from the uterus. Tenaculum was removed. Tenaculum sites were noted to be hemostatic. All instruments were removed from the vagina. Procedure was well-tolerated without complication. Fluid deficit:805
[2019-08-02 19:53] VITALS: BP 112/73
== END 2019-08-02 20:09 | disposition home or self-care (01) ==
LOC: SDS 14:02 → MS2 17:40 → SDS 20:09
PROVIDERS: ATTEND Obstetrics & Gynecology
PROC: 0UDB7ZZ Extraction of Endometrium, Via Natural or Artificial Opening (ICD-10-PCS; 2019-08-02)
PROC: 0UB98ZZ Excision of Uterus, Via Natural or Artificial Opening Endoscopic (ICD-10-PCS; principal; 2019-08-02 14:00)
DX: N84.0 Polyp of corpus uteri (principal); N84.1 Polyp of cervix uteri; Z86.2 Personal history of diseases of the blood and blood-forming organs and certain disorders involving the immune mechanism; Z79.899 Other long term (current) drug therapy; Z87.891 Personal history of nicotine dependence
CPT/HCPCS: 58558; 81025; A9270; J0131; J7120

== ENCOUNTER 2019-09-20 17:59 | Outpatient (CLI) | payer SELFPAY | END 2019-09-20 18:00 | disposition home or self-care (01) | LOC: COV 17:59 | PROVIDERS: ATTEND Family Medicine | DX: R05 Cough (principal); R50.9 Fever, unspecified; J02.9 Acute pharyngitis, unspecified; Z20.828 Contact with and (suspected) exposure to other viral communicable diseases | CPT/HCPCS: 81599 ==

== ENCOUNTER 2020-02-06 10:33 | Outpatient (CLI) | payer MEDICAID ==
[2020-02-06 15:14] LABS: HGB - HEMOGLOBIN 13.2 g/dL (12.0-16.0); MEAN CORPUSCULAR HEMOGLOBIN 29.5 pg (27.0-31.0); MEAN CORPUSCULAR HGB CONC 33.6 g/dL (32.0-36.0); MEAN CORPUSCULAR VOLUME 87.9 fL (81.0-99.0); MEAN PLATELET VOLUME 9.6 fL (7.9-10.8); RED BLOOD COUNT 4.47 10^6/uL (4.20-5.40); RED CELL DISTRIBUTION WIDTH 13.3 % (12.0-15.0); WHITE BLOOD COUNT 8.5 x10^3/uL (4.8-10.8)
[2020-02-06 15:49] LABS: THYROID STIMULATING HORMONE 0.44 uIU/mL (0.34-5.60)
[2020-02-06 15:51] LABS: FREE T4 (FREE THYROXINE) 0.85 ng/dL (0.58-1.64)
== END 2020-02-06 10:34 | disposition home or self-care (01) ==
LOC: LAB.S 10:33
PROVIDERS: ATTEND Physician Assistant
DX: Z02.0 Encounter for examination for admission to educational institution (principal); N92.4 Excessive bleeding in the premenopausal period; F32.9 Major depressive disorder, single episode, unspecified; Z79.899 Other long term (current) drug therapy
CPT/HCPCS: 36415; 80175; 81599; 82306; 84439; 84443; 85027; 86480

== ENCOUNTER 2020-06-14 18:01 | Emergency (ER) | payer MEDICAID ==
[2020-06-14] MEDS ORDERED: BUTALB/ACETAM/CAFF 50/325/40MG TABLET PO STA (19:16)
--- NOTE | 2020-06-14 19:51 | CT Report ---
PROCEDURE: HEAD WO INDICATIONS: headaches TECHNIQUE: Noncontrast 4.5 mm thick angled axial sections acquired from the foramen magnum to the vertex. For r adiation dose reduction, the following was used: automated exposure control, adjustment of mA and/or kV according to patient size. COMPARISON: None. FINDINGS: Image quality: Excellent. CSF spaces: Basal cisterns are patent. No extra-axial fluid collections. Ventricles are normal in size and shape. Brain: No midline shift. No intracranial masses or hemorrhage. Dubois-white matter interface is norm al. Skull and face: Calvarium and visualized facial bones are intact, without suspicious lesions. Sinuses: Visualized sinuses and mastoids are clear. IMPRESSION: No acute intracranial process. Reviewed by: Derek Mason MD on 06/14/2020 7:49 PM [facility] Approved by: Derek Mason MD on 06/14/2020 7:49 PM [facility] Station ID: [id number]
--- NOTE | 2020-06-14 21:00 | ED Physician Documentation ---
PD HPI HEADACHE - Stated complaint Stated Complaint: HEADACHE,NECK & SHOULDER TIGHTNESS, NAUSEA - Chief complaint Chief Complaint: Neuro - History obtained from History obtained from: Patient - History of Present Illness Timing - onset: How many months ago (1) Timing - onset during: Rest Timing - duration: Hours (lasts a few hours at a time) Timing - details: Gradual onset, Intermittant Pain level max: 6 Pain level now: 5 Worst headache ever?: No: Worst headache ever? Location: Back, Left Quality: Throbbing, Aching. No: Thunderclap, Stabbing, Tightness, Like head is exploding, Other Associated symptoms: Other (Occasionally has shooting pains to the left arm. She states the pain starts in the back of the neck and moves up across the back of her head). No: Fever, Stiff neck, Nausea, Vomiting, Weakness, Numbness, Syncope, Seizure, Eye pain, Vision changes Improved by: Rest, Dark room, Quiet Worsened by: Moving Contributing factors: No: Anticoagulated, Possible carbon monoxide, Hypertension, Recent illness, Trauma Recently seen: Clinic - Additional information Additional information: 35-year-old female states that she has left-sided neck pain that radiates up to her head and down to her left shoulder. Described as sharp and shooting. No trauma. She is been seen by her doctor for this, had a head CT ordered, but it was denied by her insurance. The patient symptoms worsened and she was told to come to the emergency department. Review of Systems Constitutional: denies: Fever, Chills GI: denies: Vomiting Skin: denies: Rash Musculoskeletal: denies: Back pain Neurologic: denies: Focal weakness, Numbness, Head injury, LOC PD PAST MEDICAL HISTORY - Past Medical History Cardiovascular: None Respiratory: None Neuro: None Endocrine/Autoimmune: None GI: None WOOD MOLDER: Ovarian cysts, Fibroids : None HEENT: None Psych: Anxiety, Panic attacks Musculoskeletal: None Derm: Eczema - Past Surgical History Past Surgical History: Yes /WOOD MOLDER: Breast reduction HEENT: Tonsil/Adenoidectomy - Present Medications Home Medications: Ambulatory Orders Medication Instructions Recorded Confirmed diazePAM [Valium] 2.5 mg PO BID 03/28/19 03/28/19 lamoTRIgine [LaMICtal] 100 mg PO DAILY 03/28/19 03/28/19 Meloxicam [Mobic] 7.5 mg PO BID PRN #20 tablet 06/14/20 predniSONE [Deltasone] 10 mg PO [id number] #42 tab 06/14/20 - Allergies Allergies/Adverse Reactions: Allergies Allergy/AdvReac Type Severity Reaction Status Date / Time acetaminophen [From Vicodin] Allergy Intermediate Itching Verified 06/14/20 18:23 hydrocodone [From Vicodin] Allergy Intermediate Itching Verified 06/14/20 18:23 Penicillins Allergy Intermediate Itching Verified 06/14/20 18:23 - Social History Does the pt smoke?: No Smoking Status: Former smoker (quit 4 years agor) Does the pt drink ETOH?: No Does the pt have substance abuse?: No - Immunizations Immunizations are current?: Yes - POLST Patient has POLST: No PD ED PE NORMAL - Vitals Vital signs reviewed: Yes - General General: Alert and oriented X 3, No acute distress - HEENT HEENT: Moist mucous membranes - Neck Neck: Supple, no meningeal sign - Cardiac Cardiac: RRR, Strong equal pulses - Respiratory Respiratory: No respiratory distress, Clear bilaterally - Abdomen Abdomen: Soft, Non tender, Non distended - Derm Derm: Warm and dry - Neuro Neuro: Alert and oriented X 3 - Psych Psych: Normal mood, Normal affect Results - Vitals Vitals: Vital Signs - 24 hr 06/14/20 06/14/20 18:17 21:07 Temperature 36.2 C L 37.1 C Heart Rate 96 70 Respiratory 18 16 Rate Blood Pressure 153/90 H 129/97 H O2 Saturation 96 97 Oxygen O2 Source Room air - Rads (name of study) head cT Radiology: Prelim report reviewed, EMP read contemporaneously, See rad report (no acute findings.) PD MEDICAL DECISION MAKING - ED course Complexity details: reviewed results, re-evaluated patient, considered differential, d/w patient ED course: 35-year-old female with what appears to be a cervical radiculopathy causing a headache and shooting pain down the left shoulder. No evidence of vascular abnormality. No evidence of dissection. No neuro deficits. We will place on a steroid taper for home to see if this helps her symptoms. She was also given Fioricet here. No evidence of subarachnoid hemorrhage, tumor, mass. Patient counseled regarding signs and symptoms for which I believe and urgent re- evaluation would be necessary. Patient with good understanding of and agreement to plan and is comfortable going home at this time This document was made in part using voice recognition software. While efforts are made to proofread this document, sound alike and grammatical errors may occur. Departure - Departure Disposition: 01 Home, Self Care Clinical Impression: Headache Qualifiers: Headache type: unspecified Headache chronicity pattern: acute headache Intractability: not intractable Qualified Code(s): R51.9 - Headache, unspecified Condition: Good Instructions: ED Cephalgia Unspecified, ED Cervical Radiculopathy Follow-Up: Noa English ARNP [Primary Care Provider] - Within 1 week Prescriptions: predniSONE [Deltasone] 10 mg PO [id number] #42 tab Meloxicam [Mobic] 7.5 mg PO BID PRN #20 tablet PRN Reason: Pain Comments: Follow-up with your doctor for further care. This may be due to cervical radiculopathy. It could also be due to migraines. You should have further work-up with your doctor. Your head CT is negative today. Discharge Date/Time: 06/14/20 21:17
[2020-06-14 21:08] VITALS: BP 129/97
--- OUTSIDE RECORDS SUMMARY | 2020-06-19 01:47 | EXTERNAL MEDICAL SUMMARY RPT | Continuity of Care Document ---
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 2020-05-21 00:00:00 US PELVIS, NON-OB [facility] 2020-06-06 00:00:00 Personal history of other [facility] specified diseases [facility] 2020-06-06 00:00:00 CT HEAD WO [facility] 2020-06-06 00:00:00 Personal history of other [facility] specified conditions [facility] 2020-06-06 00:00:00 Tobacco use and exposure [facility] 2020-06-06 00:00:00 History of [facility] 2020-06-06 00:00:00 Little interest or pleasure in [facility] doing things? [facility] 2020-06-06 00:00:00 Feeling down, depressed, or [facility] hopeless? [facility] 2020-06-06 00:00:00 Former smoker [facility] Allergies date description facility NO KNOWN ALLERGIES [facility] EMANUEL Inhibitors [facility] Penicillins [facility] cephalexin [facility] lisinopril [facility] NO KNOWN ALLERGIES [facility] Penicillins [facility] hydrocodone [facility] acetaminophen [facility] Medications date description facility 2020-04-17 00:00:00 null [facility] 2020-04-17 00:00:00 null [facility] 2020-04-17 00:00:00 LAMOTRIGINE [facility] 2020-04-17 00:00:00 LAMOTRIGINE [facility] 2020-06-06 00:00:00 null [facility] 2020-06-06 00:00:00 null [facility] 2020-06-06 00:00:00 SUMATRIPTAN SUCCINATE [facility] 2020-06-06 00:00:00 SUMATRIPTAN SUCCINATE [facility] Social History date description facility 2020-06-06 00:00:00 Former smoker [facility] Social History date description facility 2020-06-06 00:00:00 Former smoker [facility] date description facility [phone]
== END 2020-06-14 21:17 | disposition home or self-care (01) ==
LOC: ED 18:01
DX: R51.9 Headache, unspecified (principal); M54.12 Radiculopathy, cervical region; Z87.891 Personal history of nicotine dependence
CPT/HCPCS: 70450; 99284; A9270

== ENCOUNTER 2020-06-24 14:49 | Outpatient (CLI) | payer MEDICAID ==
--- NOTE | 2020-06-24 16:50 | Ultrasound Report ---
PROCEDURE: Pelvic w/Transvaginal INDICATIONS: ABNORMAL UTERINE BLEEDING TECHNIQUE: Real-time scanning was performed of the pelvic organs, with image documentation. Additional endovagi nal scanning was necessary due to incomplete visualization of the adnexal and endometrial structures by transabdominal scanning. COMPARISON: Pelvic ultrasound dated 07/31/2019 FINDINGS: Transabdominal scanning: Limited scanning through the kidneys shows no hydronephrosis. No pathologi c free abdominal or pelvic fluid. Endovaginal scanning: Uterus: Uterus is normal in size at 8.3 x 4.7 x 4.7 cm. The endometrium measures 7 mm in combined t hickness. An anterior midline intramural fibroid is seen measuring 2.6 x 2.5 x 3 cm, previously measu ring 2.5 x 2 x 2.5 cm. Ovaries: The right ovary measures 4.3 x 2.1 x 3.1 cm (14 mL). The left ovary measures 3.4 x 1.8 x 2. 2 cm (7 mL). IMPRESSION: 1. Intramural uterine fibroid appears mildly increased in size when compared to the ultrasound from 08/02/2019. 2. Normal endometrial thickness. Reviewed by: Ajit Erickson MD on 06/24/2020 4:49 PM PST Approved by: Ajit Erickson MD on 06/24/2020 4:49 PM PST Station ID: [id number]
== END 2020-06-24 14:50 | disposition home or self-care (01) ==
LOC: DI 14:49
PROVIDERS: ATTEND Obstetrics & Gynecology
DX: D25.1 Intramural leiomyoma of uterus (principal)

== ENCOUNTER 2020-07-03 16:34 | Outpatient (CLI) | payer MEDICAID ==
--- NOTE | 2020-07-03 18:08 | MRI Report ---
PROCEDURE: Brain W/O INDICATIONS: HX OF HEADACHES TECHNIQUE: Noncontrast axial T1 spin echo, axial T2 fast spin echo, sagittal and axial FLAIR, coronal T2 fast sp in echo, axial gradient echo, axial diffusion and ADC through the brain. COMPARISON: Correlation is made with prior head CT 06/14/2020 FINDINGS: Image quality: Excellent. CSF Spaces: Basal cisterns are patent. No extra-axial fluid collections. Ventricles are normal in size and shape. Brain: No intracranial masses or hemorrhage. Dubois/white matter interface is normal. Brainstem appe ars normal. Diffusion-weighted images demonstrate no acute ischemic insult. No chronic ischemic ins ults. Normal intravascular flow voids are present. Skull and face: Calvarium has normal marrow signal. Orbits appear normal. Sinuses: Sinuses and mastoids are clear. IMPRESSION: A cause of headache cannot be seen on these images. Reviewed by: Roe Viveros MD on 07/03/2020 5:06 PM [facility] Approved by: Roe Viveros MD on 07/03/2020 5:06 PM [facility] Station ID: [id number]
== END 2020-07-03 16:35 | disposition home or self-care (01) ==
LOC: DI 16:34
PROVIDERS: ATTEND Registered Nurse
DX: R51.9 Headache, unspecified (principal)

== ENCOUNTER 2020-12-23 17:20 | Outpatient (CLI) | payer MEDICAID | END 2020-12-23 17:21 | disposition home or self-care (01) | LOC: COV 17:20 | PROVIDERS: ATTEND Plastic Surgery | DX: Z01.812 Encounter for preprocedural laboratory examination (principal); Z20.822 Contact with and (suspected) exposure to COVID-19 ==

== ENCOUNTER 2022-02-23 12:52 | Outpatient (CLI) | payer MEDICAID ==
[2022-03-03 21:07] LABS: VARICELLA-ZOSTER AB IGM 1.2 index (0.00-0.90)
== END 2022-02-23 12:53 | disposition home or self-care (01) ==
LOC: LAB.S 12:52
PROVIDERS: ATTEND Emergency Medicine
DX: Z00.00 Encounter for general adult medical examination without abnormal findings (principal); D25.1 Intramural leiomyoma of uterus
CPT/HCPCS: 36415; 81599; 86480; 86762; 86765; 86787

== ENCOUNTER 2022-05-12 13:18 | Outpatient (CLI) | payer MEDICAID ==
[2022-05-13 02:07] LABS: HEPATITIS B SURFACE AB QUANT >1000.0 mIU/mL (Immunity>9.9)
[2022-05-13 08:10] LABS: MUMPS ANTIBODIES IGG <9.0 AU/mL (Immune >10.9)
== END 2022-05-12 13:19 | disposition home or self-care (01) ==
LOC: LAB 13:18
PROVIDERS: ATTEND Registered Nurse
DX: Z00.00 Encounter for general adult medical examination without abnormal findings (principal); Z13.89 Encounter for screening for other disorder
CPT/HCPCS: 81599; 86317; 86735